=== PATIENT | male | born 1975 | race Caucasian/White ===

== ENCOUNTER → 2016-12-01 | Outpatient (CLI) | payer BC ==
[~2016-12-01] MED LIST: ADVIL200 MG PO; AMBIEN10 MG PO; ASPIR-TRIN325 MG PO; DELTASONE20 M1 PO; DELTASONE20 MG PO; FISH OIL 1,2001 EACH PO; MIRALAX17 GM PO; NORCO 5-325 MG1 TAB PO; PREVACID30 M1 PO; PROZAC20 MG PO; SSD (THERMAZENE25 GM TOP; TRIAMCINOLONE 015 GM TOP
== END | disposition disaster alternative care site (69) ==
LOC: GRAD 09:11
DX: Z08 Encounter for follow-up examination after completed treatment for malignant neoplasm (principal); Z85.820 Personal history of malignant melanoma of skin; R91.8 Other nonspecific abnormal finding of lung field; N52.9 Male erectile dysfunction, unspecified; B08.20 Exanthema subitum [sixth disease], unspecified; F84.5 Asperger's syndrome; K71.2 Toxic liver disease with acute hepatitis; K76.89 Other specified diseases of liver; K57.30 Diverticulosis of large intestine without perforation or abscess without bleeding
CPT/HCPCS: Q9967

== ENCOUNTER → 2017-03-13 | Outpatient (CLI) | payer BC | END | disposition disaster alternative care site (69) | LOC: GRAD 07:35 | DX: C43.59 Malignant melanoma of other part of trunk (principal); N52.9 Male erectile dysfunction, unspecified; I51.7 Cardiomegaly; K71.2 Toxic liver disease with acute hepatitis; B08.20 Exanthema subitum [sixth disease], unspecified; F84.5 Asperger's syndrome; R59.0 Localized enlarged lymph nodes; Z79.899 Other long term (current) drug therapy | CPT/HCPCS: Q9967 ==